=== PATIENT | male | born 1945 | race Caucasian/White ===

== ENCOUNTER 2024-07-27 16:16 | Emergency (ER) | payer OTHER, MEDICARE ==
[~2024-07-27] VITALS: Ht 182.9 cm; Wt 92.5 kg
[2024-07-27 16:44] VITALS: BP 144/68; PULSE 67; RESP 18; TEMP 98.3; O2SAT 97
[2024-07-27 16:44] LABS: BASOPHILS # (AUTO) 0.12 K/uL (0.00-0.20); BASOPHILS % (AUTO) 1.3 % (0.0-5.0); EOSINOPHILS % (AUTO) 3.4 % (0.0-8.0); HEMATOCRIT 48.7 % (42-54); IMMATURE GRANULOCYTE ABSOLUTE 0.07 K/uL (0-1); LYMPHOCYTES # (AUTO) 1.9 K/uL (1.0-4.8); LYMPHOCYTES % (AUTO) 20.8 % (21.0-51.0); MEAN CORPUSCULAR HEMOGLOBIN 29.9 pg (27.0-33.0); MEAN CORPUSCULAR HGB CONC 33.5 g/dL (32.0-36.0); MEAN CORPUSCULAR VOLUME 89.2 fL (79-99); MONOCYTES % (AUTO) 11.6 % (3.0-13.0); NEUTROPHILS # (AUTO) 5.5 K/uL (1.8-7.7); NEUTROPHILS % (AUTO) 62.1 % (40.0-77.0); PLATELET COUNT (AUTO) 279 K/uL (130-400); RED BLOOD CELL COUNT(AUTO) 5.46 MIL/uL (4.50-6.20); RED CELL DISTRIBUTION WIDTH 14.4 % (11.0-15.5); WHITE BLOOD COUNT (AUTO) 8.9 K/uL (4.8-10.8)
[2024-07-27] MEDS: LACTATED RINGERS 1000ML 1,000 ML IV ONE (16:48)
[2024-07-27 16:50] LABS: CREATININE 1.3 mg/dL (0.5-1.3); POTASSIUM 3.7 mmol/L (3.5-5.1)
--- NOTE | 2024-07-27 16:52 | EKG ---
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
[2024-07-27 17:09] LABS: B-TYPE NATRIURETIC PEPTIDE 8 pg/mL (0-100)
--- NOTE | 2024-07-27 17:10 | ERN ---
General Chief Complaint: Dizzy/Light Headed Stated Complaint: DIZZINESS Time Seen by MD: 16:18 Source: patient, EMS History of Present Illness Initial Comments Patient is a 78-year-old male coming in complaining of vertigo. Patient states that he has been having this problem for two years. States that he is having physical therapy for spinal injury which he received surgery for he started presenting with increased vertigo was sent to his PCP and PCP decided to send patient to the ER. Per patient he has been having increased vertigo for the past two days she attributes also to a cough runny nose and nasal congestion. Allergies: Coded Allergies: No Known Drug Allergies (Unverified Allergy, Unknown, 07/27/24) Past Medical History Past Medical History: Anxiety, Diabetes-Type II, Hypertension Past Surgical History: None ROS Dictation CONSTITUTIONAL: No chills, no fever, no weakness, no diaphoresis, no malaise. HEAD/FACE: No signs of trauma. EENT: No eye pain, no blurred vision, no tearing, no double vision, no ear pain, no ear discharge, no nose pain, nasal congestion, no throat pain, no throat swelling, no mouth pain. RESPIRATORY: No cough, no orthopnea, no SOB, no stridor, no wheezing. CARDIOVASCULAR: No chest pain, no edema, no palpitations, no syncope. GASTROINTESTINAL/ABDOMINAL: No abdominal pain, no constipation, no diarrhea, no nausea, no vomiting. GENITOURINARY: No abnormal discharge, no dysuria, no frequent urination, no hematuria. No complaints of pain in the genitals. MUSCULOSKELETAL: No back pain, no gout, no joint pain, no joint swelling, no muscle pain, no muscle stiffness, no neck pain. INTEGUMENTARY: No change in color, no change in hair/nails, no dryness, no lesion, no lumps, no rash. NEUROLOGICAL/PSYCH: No anxiety, not depressed, no emotional problem, no headache, no numbness, no pre-existing deficit, no history of seizures, no tremors, no weakness. HEMATOLOGIC/LYMPHATIC: Not anemic, no history of blood clots, no apparent bleeding, no bruising, glands not swollen. All Systems Negative, Except as Noted. Physical Exam Physical Exam Dictation VITAL SIGNS: Reviewed. GENERAL APPEARANCE: Alert, oriented x3, no acute distress, obese. HEAD AND FACE: Non-traumatic. EYES: PERRL, pink conjunctivas, eyelid no trauma, anterior chamber clear. EARS: Pinnas intact and no signs of trauma or erythema. Ear canals clear and no discharge. TMs no erythema. NOSE: No discharge, no bleeding. OROPHARYNX: Mouth normal, teeth no caries, tongue pink. Pharynx clear, no erythema. Tonsils no exudates, no abscesses noted. Mucous membrane moist. NECK: Supple, non-tender, no thyromegaly, no masses, no JVD, no bruits. BREAST: Deferred. CHEST: No tenderness, no crepitus, no paradoxical movement, no retractions. LUNGS: Clear, well-ventilated, symmetric, no rales, no wheezing, no rhonchi, no stridor, good breath sounds bilaterally. HEART: Regular rate, regular rhythm, no murmur, no gallops. VASCULAR: No peripheral edema. ABDOMEN: Soft, positive bowel sounds, nondistended, no guarding, nontender, no rebound, no masses no hepatomegaly, no splenomegaly, no Dunne's sign, no hernias. RECTAL: Deferred. GENITAL: Deferred. NEUROLOGICAL: Normal speech, gross motor function intact, gross sensory function intact. MUSCULOSKELETAL: Neck nontender, full range of motion, back nontender, full range of motion. EXTREMITIES: Nontender, full range of motion. SKIN: Color pink, dry, no turgor, no rash, no lacerations, no abrasions, no contusions. LYMPHATICS: Deferred. Results Laboratory and Microbiology Lab and Micro Result Laboratory Tests Test 07/27/24 16:36 07/27/24 17:20 07/27/24 17:30 White Blood Count 8.9 K/uL (4.8-10.8) Red Blood Count 5.46 MIL/uL (4.50-6.20) Hemoglobin 16.3 g/dL (14.0-18.0) Hematocrit 48.7 % (42-54) Mean Corpuscular Volume 89.2 fL (79-99) Mean Corpuscular Hemoglobin 29.9 pg (27.0-33.0) Mean Corpuscular Hemoglobin Concent 33.5 g/dL (32.0-36.0) Red Cell Distribution Width 14.4 % (11.0-15.5) Platelet Count 279 K/uL (130-400) Mean Platelet Volume 11.3 fL (7.5-10.5) H Immature Granulocyte % (Auto) 0.8 % (0-1) Neutrophils (%) (Auto) 62.1 % (40.0-77.0) Lymphocytes (%) (Auto) 20.8 % (21.0-51.0) L Monocytes (%) (Auto) 11.6 % (3.0-13.0) Eosinophils (%) (Auto) 3.4 % (0.0-8.0) Basophils (%) (Auto) 1.3 % (0.0-5.0) Neutrophils # (Auto) 5.5 K/uL (1.8-7.7) Lymphocytes # (Auto) 1.9 K/uL (1.0-4.8) Monocytes # (Auto) 1.0 K/uL (0.1-1.0) Eosinophils # (Auto) 0.30 K/uL (0.00-0.70) Basophils # (Auto) 0.12 K/uL (0.00-0.20) Absolute Immature Granulocyte (auto 0.07 K/uL (0-1) Nucleated Red Blood Cells 0.0 % (0.0-0.19) Sodium Level 139 mmol/L (136-145) Potassium Level 3.7 mmol/L (3.5-5.1) Chloride Level 106 mmol/L (101-111) Carbon Dioxide Level 23 mmol/L (21-32) Blood Urea Nitrogen 29 mg/dL (7-18) H Creatinine 1.3 mg/dL (0.5-1.3) Glomerular Filtration Rate Calc 57 mL/min (>90) Random Glucose 166 mg/dL (70-105) H Total Calcium 8.9 mg/dL (8.5-10.1) Total Creatine Kinase 57 U/L (21-232) Troponin I High Sensitivity < 4 ng/L (4-75) L B-Type Natriuretic Peptide 8 pg/mL (0-100) Urine Color LIGHT-YELLOW (YELLOW) Urine Appearance CLEAR (CLEAR) Urine pH 5.5 (5.0-8.0) Urine Specific Pax 1.020 (1.001-1.031) Urine Protein NEGATIVE mg/dL (NEGATIVE) Urine Glucose (UA) >=1000 mg/dL (NEGATIVE) H Urine Ketones NEGATIVE mg/dL (NEGATIVE) Urine Occult Blood NEGATIVE (NEGATIVE) Urine Nitrate NEGATIVE (NEGATIVE) Urine Bilirubin NEGATIVE mg/dL (NEGATIVE) Urine Urobilinogen 0.2 mg/dL (0.2-1.0) Urine Leukocyte Esterase NEGATIVE [place]/uL Urine RBC 0-1 /HPF (0-1) Urine WBC 0-1 /HPF (0-1) Urine Bacteria None /HPF (None Seen) Influenza Type A Antigen Negative For Type A Influenza Type B Antigen Negative For Type B SARS-CoV-2, RNA, NAAT NEGATIVE SARS CoV-2 Group A Streptococcus Rapid negative (NEGATIVE) Labs Reviewed?: Yes EKG/XRAY/US/CT/MRI EKG Comment 07/27/2024 time 4:32 p.m. Ventricular rate 68 Sinus rhythm [place] [address] wave elevation or depression CT Scan Comment [address] [place] [id number] IMAGING REPORT Signed PATIENT: CARMEN EASTMAN MR#: [id number] : 1945 SEX: M AGE: 78 LOCATION: [facility] ORDER [id number] STATUS: REG REPORT#: [id number] SERVICE 1618 REASON: vertigo ORDERING PHYSICIAN: CAROLYNN HORNE MD PROCEDURE: HEAD WO - CT HEAD/BRAIN W/O CONTRAST Exam: NONCONTRAST CT BRAIN REASON: vertigo. COMPARISON: None. TECHNIQUE: Images are obtained from vertex to the skull base. The exam was performed without IV contrast. FINDINGS: There is normal appearing brain parenchyma. There are no focal mass lesions. There is is no evidence of intracranial hemorrhage or acute stroke. Ventricles and sulci appear normal. Posterior fossa and brainstem structures are unremarkable. Paranasal sinuses and remaining extracranial soft tissues appear normal as well. IMPRESSION: 1. Normal noncontrast CT brain. CT was performed with one or more following dose reduction techniques: automated exposure control, adjustment of the mA and kv according to patient's size, or use of a iterative reconstruction technique. DICTATED BY: MARYELLEN MARC MD DATE: 07/27/241714 ELECTRONICALLY SIGNED BY: MARYELLEN MARC MD DATE: 07/27/241717 MDM MDM: Differential diagnosis: Vertigo, sinusitis, Rationale: Tests considered and ordered secondary to shared decision making include: Previous outside records reviewed: Old ER visits. Risk of complication and/or morbidity or mortality of patient management: None Patient is a 78-year-old male coming in complaining of vertigo. Per patient the symptoms worsened two days ago. On physical exam nasal turbinate swelling trena pharyngeal erythema and mild tympanic membrane erythema. Patient states that he has been battling with vertigo for greater than two years. He has been seen by multiple medical specialists neurologist MRIs has been performed. He states that everything has been normal. Patient received IV steroids fluids and meclizine he states that his symptoms improved significantly. I did advise him to follow up with the ENT as recently told as well as neurologist and he stated that he has been with a neurologist for his vertigo. Due to the fact that patient is feeling much better patient will be discharged for ongoing treatment of sinusitis causing worsening of his vertigo. ED Course Orders Procedure Category Date Status Time Cbc With Differential LAB 07/27/24 Complete 16:18 B-Type Natriuretic LAB 07/27/24 Complete Peptide 16:18 Chest 1vw RAD 07/27/24 Resulted 16:18 12 Lead Ekg Tracing- EKG 07/27/24 Complete Technical 16:18 Lactated Ringers PHA 07/27/24 Complete 1000ml (Lactated 16:30 Creatine Kinase, Total LAB 07/27/24 Complete 16:18 Troponin I High LAB 07/27/24 Complete Sensitivity 16:18 Urinalysis Profile LAB 07/27/24 Complete 16:18 Basic Metabolic Panel LAB 07/27/24 Complete 16:18 Ct Head/Brain W/O CT 07/27/24 Resulted Contrast 16:18 Meclizine Hcl 25 Mg PHA 07/27/24 Complete (Antivert 25 Mg) 17:30 Dexamethasone 4mg/Ml PHA 07/27/24 Complete 1ml Vial (Dexametha 17:30 Covid Rna Naat LAB 07/27/24 Complete 17:20 Influenza Type A & B, LAB 07/27/24 Complete Rapid 17:20 Rapid (Group A Strep) LAB 07/27/24 Complete 17:20 Current Medications Medications (Trade) Dose Ordered Sig/Cinthia Route PRN Reason Start Time Stop Time Status Last Admin Dose Admin Dexamethasone Sodium Phosphate (dexaMETHasone 4MG/ML 1ML VIAL) 6 mg ONCE ONCE IVP 07/27/24 17:30 07/27/24 17:31 DC 07/27/24 17:13 Lactated Ringer's 1,000 ml @ 0 mls/hr ONCE ONCE IV 07/27/24 16:30 07/27/24 16:31 DC 07/27/24 16:48 Meclizine HCl (ANTIvert 25 mg) 25 mg ONCE ONCE PO 07/27/24 17:30 07/27/24 17:31 DC 07/27/24 17:13 Vital Signs Date Time Temp Pulse Resp B/P (MAP) Pulse Ox O2 Delivery O2 Flow Rate FiO2 07/27/24 16:44 98.2 67 18 144/68 97 Room Air* 0 21 07/27/24 16:20 100 Room Air 0 DX & DISP Disposition: Discharge Departure Impression: Primary Impression: Sinusitis Additional Impression: Chronic vertigo Condition: Stable Scripts Meclizine HCl (Meclizine HCl) 12.5 Mg Tablet 1 TAB PO TID for dizziness for 10 Days, #30 TAB 0 Refills Prov: CAROLYNN HORNE MD 07/27/24 Loratadine (Loratadine) 10 Mg Tablet 1 TAB PO DAILY for allergy symptoms for 30 Days, #30 TAB 0 Refills Prov: CAROLYNN HORNE MD 07/27/24 Fluticasone Propionate (Flonase Nasal Hawkeye) 50 Mcg/Actuation Hawkey[place] 2 SPRAY NS DAILY, #16 GM 0 Refills Prov: CAROLYNN HORNE MD 07/27/24 Amoxicillin/Potassium Clav (Amox Tr-K Clv 875-125 mg Tab) 875 Mg-125 Mg Tablet 1 TAB PO BID for 10 Days, #20 TAB 0 Refills Prov: CAROLYNN HORNE MD 07/27/24 Additional Instructions: FOLLOW-UP WITH PRIMARY CARE PROVIDER IN 1 TO 2 DAYS. TAKE MEDICATIONS DIRECTED HERE IN THE EMERGENCY ROOM. OKAY TO CONTINUE HOME MEDICATIONS UNLESS OTHERWISE DISCUSSED DURING YOUR VISIT IN THE EMERGENCY ROOM TODAY. RETURN TO YOUR NEAREST EMERGENCY ROOM IF SYMPTOMS WORSEN OR IF THERE IS NO IMPROVEMENT. CALL 911 IF YOU NEED IMMEDIATE ASSISTANCE. TAKE TYLENOL [id number] NEEDED AND IF NO CONTRAINDICATIONS ARE PRESENT. INCREASE ORAL HYDRATION. A WOUND CULTURE OR URINE CULTURE WAS ORDERED HERE IN THE EMERGENCY ROOM DEPARTMENT PLEASE FOLLOW-UP WITH PRIMARY CARE PROVIDER AND ADVISE THEM TO GET REPORTS FROM OUR FACILITY. IF YOU HAD ANY BIANCA WRAP/SPLINTS THAT WERE APPLIED HERE, PLEASE DO NOT REMOVE THEM UNTIL YOU SEE YOUR PRIMARY CARE OR SPECIALTY. Referrals: Referrals: RHODA DORSEY MD, LUIS A MD WRIGHT, JAMES T MD Time of Disposition: 18:24 CAROLYNN HORNE MD Jul 27, 2024 17:10
[2024-07-27] MEDS: mecliZINE HCL 25 MG TABLET PO ONE (17:13)
[2024-07-27] MEDS: dexaMETHasone SOD PHOSPHATE 4 MG/ML 1ML VIAL IVP ONE (17:13)
--- NOTE | 2024-07-27 17:18 | HMCIMG ---
Exam: NONCONTRAST CT BRAIN REASON: vertigo. COMPARISON: None. TECHNIQUE: Images are obtained from vertex to the skull base. The exam was performed without IV contrast. FINDINGS: There is normal appearing brain parenchyma. There are no focal mass lesions. There is is no evidence of intracranial hemorrhage or acute stroke. Ventricles and sulci appear normal. Posterior fossa and brainstem structures are unremarkable. Paranasal sinuses and remaining extracranial soft tissues appear normal as well. IMPRESSION: 1. Normal noncontrast CT brain. CT was performed with one or more following dose reduction techniques: automated exposure control, adjustment of the mA and kv according to patient's size, or use of a iterative reconstruction technique.
--- NOTE | 2024-07-27 17:33 | HMCIMG ---
CHEST 1VW REASON: vertigo COMPARISON: None. FINDINGS: Single view of the chest was obtained. Lungs are clear. Heart size is normal. There is no pulmonary vascular congestion. Mediastinum and bony thorax appear unremarkable. There are surgical changes in the lower cervical spine, with hardware. IMPRESSION: 1. No acute finding seen in the chest.
[2024-07-27 17:35] LABS: ADD UA MICROSCOPIC YES; APPEARANCE,URINE CLEAR (CLEAR); BILIRUBIN,URINE NEGATIVE (NEGATIVE); COLOR,URINE LIGHT-YELLOW (YELLOW); GLUCOSE, URINE (UA) >=1000 mg/dL (NEGATIVE); KETONES,URINE NEGATIVE (NEGATIVE); LEUKOCYTE ESTERASE ,URINE NEGATIVE Leu/uL (NEGATIVE); NITRATE,URINE NEGATIVE (NEGATIVE); OCCULT BLOOD,URINE NEGATIVE (NEGATIVE); PH,URINE 5.5 (5.0-8.0); PROTEIN,URINE NEGATIVE (NEGATIVE); UROBILINOGEN,URINE 0.2 mg/dL (0.2-1.0)
[2024-07-27 17:40] LABS: MUCUS,URINE RARE LPF (None Seen); RBC,URINE 0-1 /HPF (0-1); WBC,URINE 0-1 /HPF (0-1)
[2024-07-27 18:01] LABS: RAPID GROUP A STREP negative (NEGATIVE)
[2024-07-27 18:02] LABS: SARS-CoV-2, RNA, NAAT NEGATIVE SARS CoV-2 (NEGATIVE)
[2024-07-27 18:11] LABS: INFLUENZA TYPE A Negative For Type A (NEGATIVE); INFLUENZA TYPE B Negative For Type B (NEGATIVE)
[2024-07-27] MEDS ORDERED: FLUT16H NS (18:25)
[2024-07-27] MEDS ORDERED: MECL-226 PO (18:25)
[2024-07-27] MEDS ORDERED: LORA10TA7 PO (18:25)
[2024-07-27] MEDS ORDERED: AMOX1TAB16 PO (18:25)
--- NOTE | 2024-07-27 18:34 | NUR ---
PT AAOX4 , PT IS STABLE NO DISTRESS VITALS WNL NO C/O PAIN NOW, PT STATES HE FEELS BETTER. IV REMOVED CATHETER INTACT. PT GIVEN INSTRUCTIONS FOR HOME. PT DRIVEN HOME BY FAMILY.
== END 2024-07-27 18:43 | disposition home or self-care (01) ==
LOC: EDH 16:16
DX: J32.9 Chronic sinusitis, unspecified (principal); R42 Dizziness and giddiness; E11.9 Type 2 diabetes mellitus without complications; I10 Essential (primary) hypertension; F41.9 Anxiety disorder, unspecified; Z20.822 Contact with and (suspected) exposure to COVID-19
CPT/HCPCS: 99285; 96374; 70450; 71045; 87635; 82550; 84484; 80048; 83880; 85025; 87880; 87804 ×2; 81001; 36415; 93005; J1100

== ENCOUNTER → 2024-09-30 | Outpatient (CLI) | payer OTHER ==
[~2024-09-30] MED LIST: AMOX1TAB16 PO; FLUT16H NS; LORA10TA7 PO; MECL-226 PO
--- NOTE | 2024-10-02 09:32 | HMCIMG ---
EXAM: MR Lumbar Spine Without Intravenous Contrast. CLINICAL HISTORY: Chronic pain syndrome. TECHNIQUE: Magnetic resonance images of the lumbar spine in multiple planes. CONTRAST: None. COMPARISON: None. FINDINGS: For this examination, spinal levels were labelled assuming five [id number], lumbar-type vertebrae, with the inferior labelled L5. No acute fracture. Normal lordotic curvature. Normal vertebral body height and marrow signal intensity. Mild levoscoliosis of the lumbar spine. Post laminectomy status at L2-L3, L3-L4, L4-L5, and L5-S1 level with multilevel severe degenerative facet arthropathy. Conus medullaris terminates at the T12-L1 level. No abnormal epidural masses. The surrounding soft tissues are unremarkable. Individual spinal levels are described as follows: T12-L1: No disc bulge or herniation. No neural foraminal, lateral recess, or spinal canal stenosis. L1-L2: No disc bulge or herniation. No neural foraminal, lateral recess, or spinal canal stenosis. L2-L3: Disc desiccation with degenerative reduction in disc space. Minimal retrolisthesis of L2 over L3. Moderate to severe bilateral facet arthropathy. Moderate to severe narrowing of the bilateral neural foramina. Subtle subchondral degenerative marrow edema on the inferior endplate of the L2 vertebra.. Small 5 mm synovial cyst from the left facet joint. L3-L4: Broad-based circumferential 4 mm disc bulge. Moderate bilateral facet arthropathy and ligamentum flavum hypertrophy. Moderate narrowing of the right neural foramina and mild narrowing of the left neural foramina. Mild narrowing of the right lateral recess. Abutment of the bilateral exiting L3 nerve root is right more than left, and the right traversing L4 nerve root. No spinal canal stenosis. L4-L5: Broad-based circumferential 4 mm disc bulge. Moderate bilateral facet arthropathy and ligamentum flavum hypertrophy. Moderate to severe narrowing of the right neural foramina and moderate narrowing of the left neural foramina. Mild narrowing of the right lateral recess. Abutment of the bilateral exiting L4 nerve root is right more than left, and the right traversing L5 nerve root. No spinal canal stenosis. L5-S1: Mild disc desiccation with broad-based circumferential 4 mm disc bulge. Mild bilateral facet arthropathy, mild narrowing of the bilateral neural foramina, left more than right. Abutment of the left exiting L5 nerve root. No significant lateral recess or spinal canal stenosis. A 12 mm sclerotic focus in the left iliac bone is probably a bone island. Left renal parapelvic cyst is identified (5 cm) IMPRESSION: Normal vertebral body height and marrow signal intensity. Mild levoscoliosis of the lumbar spine. Post laminectomy status at L2-L3, L3-L4, L4-L5, and L5-S1 level with multilevel severe degenerative facet arthropathy. Multilevel severe degenerative changes in the lumbar spine and at L2-L3, L3-L4, and L4-L5 levels are most prominent at the L2-L3 level. Minimal retrolisthesis of L2 over L3. Subchondral degenerative marrow edema in the inferior endplate of the L2 vertebra. Left renal parapelvic cyst is identified (5 cm). /[place]
== END | disposition home or self-care (01) ==
LOC: RAH 13:57
PROVIDERS: ATTEND Neurological Surgery
DX: M51.17 Intervertebral disc disorders with radiculopathy, lumbosacral region (principal); M96.1 Postlaminectomy syndrome, not elsewhere classified; G89.4 Chronic pain syndrome; M47.27 Other spondylosis with radiculopathy, lumbosacral region; N28.1 Cyst of kidney, acquired; M41.87 Other forms of scoliosis, lumbosacral region
CPT/HCPCS: 72148